=== PATIENT | male | born 1940 | race Caucasian/White ===

== ENCOUNTER 2024-03-26 08:36 | Outpatient (CLI) | payer MEDICARE, SELFPAY ==
--- NOTE | 2024-04-04 11:53 | WPDSLEEPSTUD ---
Sleep Study Date of Study: 03/26/24 Ordering Provider: Manny Dominguez, BOTTLE [employer] Interpreting Physician: Areli Edmonds MD Sleep Study Type: CPAP Titration Height: 1.83 m Weight: 90.718 kg Body Mass Index: 27.1 Neck Circumference (inches): 17 [place]: 7 Reason for Sleep Study Obstructive sleep apnea; office note indicates he was diagnosed with sleep apnea, was using auto PAP 5-12 with 3 cm EPR; I reviewed his compliance from February 17 through March 18. He has used his auto PAP 80% the days greater than 4 hours. His average usage is 5 hours 33 minutes. He is on auto PAP 5 cm to 12 cm with 3 cm EPR. His AHI is 11.8; central AHI 7.0 and obstructive AHI 3.2. He has good compliance with high AHI mainly central events. He presents for a CPAP titration. Sleep History Eusebio Moses is an 83-year-old man with a diagnosis of obstructive sleep apnea, received a CPAP machine in January of 2024 with difficulty using his device. His office note shows that he is on APAP 5-12 cm water pressure with 3 cm EPR with an elevated AHI 12 with central AHI of 7. 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 He has had difficulty sleeping at night since he retired. 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 He occasionally wakes at night with heartburn, belching or coughing.??He occasionally snores, only rarely snores loudly enough that others complain. He rarely has trouble sleeping when he has a cold. He rarely wakes up gasping for breath during the night. He occasionally has breathing problems at night. He never sweats excessively at night. He never notices his heart pounding or beating irregularly during the night. He constantly falls asleep during the day. He constantly falls asleep involuntarily, never falls asleep while driving. He never experiences loss of muscle tone with strong emotion. He never has daytime difficulty at work due to excessive sleepiness. He never feels paralyzed on waking or falling asleep. He never experiences vivid dreams upon waking or falling asleep. He never feels afraid of going to sleep. He rarely has nightmares. He rarely recalls his dreams. He rarely has thoughts racing through his mind. He rarely feels sad or depressed. He rarely feels anxiety. He frequently notices parts of his body jerk. He frequently kicks during the night. He frequently feels crawling or aching feelings in his legs. He never feels leg pain at night. He never has morning jaw pain, never grinds his teeth at night. He never feels bothered by pain during the day, is never awakened by pain during the night. He rarely wakes up feeling stiff in the morning, and he rarely wakes feeling sore or achy. He never awakens with pain in his neck, spine, or joints. Normal bedtime is 10:30 p.m., falling asleep quickly, waking 2 times at night to go to the bathroom, is able to return to sleep quickly. He wakes at 9:00 a.m.. He estimates getting between 4 and 6 hours of sleep at night. He keeps the same schedule on weekends. He generally does not nap in the day however a short nap lasting 10-15 minutes might be refreshing. He is usually drowsy for an hour after waking. He has had no significant weight change in the last year. Habits:??Tobacco: Quit tobacco 30 years ago Caffeine: 12 oz per day Alcohol: 12 oz per week Recreational substances: none PMFSH Past Medical History Medical History (Updated 04/07/24 @ 12:02 by Areli Edmonds MD) Hypertension Obstructive sleep apnea Rhinitis Surgical History Surgical History (Updated 04/04/24 @ 13:34 by Areli Edmonds MD) Status post surgical removal of malignant neoplasm of skin Social History Social History (Updated 04/04/24 @ 13:32 by Areli Edmonds MD) Social History: Quit tobacco 30 years ago. 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 Smoking packs per day: 1 Smoking cigarettes per day: 20.0 Smoking status: Former
[2024-04-07 12:41] VITALS: BMI 27.1
== END 2024-03-27 06:55 | disposition home or self-care (01) ==
LOC: ANHCSM 08:37
PROVIDERS: Visit Provider Nurse Practitioner Family
DX: G47.33 Obstructive sleep apnea (adult) (pediatric) (principal); G47.31 Primary central sleep apnea
CPT/HCPCS: 95811

== ENCOUNTER 2024-05-05 08:48 | Outpatient (CLI) | payer MEDICARE, SELFPAY ==
[2024-05-27 16:05] VITALS: BMI 27.1
--- NOTE | 2024-05-27 16:05 | WPDSLEEPSTUD ---
Sleep Study Date of Study: 05/05/24 Ordering Provider: Manny Dominguez, [employer] Interpreting Physician: Jaja Mabry, DO Sleep Study Type: CPAP Titration Height: 1.83 m Weight: 90.718 kg Body Mass Index: 27.1 Neck Circumference (inches): 17 [place]: 7 Reason for Sleep Study The patient had a CPAP Titration on 03/26/2024 which was unsuccessful due to extremely fragmented sleep and low sleep efficiency. No optimal pressure was found. Sleep History Eusebio Moses is an 83-year-old man with a diagnosis of obstructive sleep apnea, received a CPAP machine in January of 2024 with difficulty using his device. His office note shows that he is on APAP 5-12 cm water pressure with 3 cm EPR with an elevated AHI 12 with central AHI of 7. 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 He has had difficulty sleeping at night since he retired. 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 He occasionally wakes at night with heartburn, belching or coughing.??He occasionally snores, only rarely snores loudly enough that others complain. He rarely has trouble sleeping when he has a cold. He rarely wakes up gasping for breath during the night. He occasionally has breathing problems at night. He never sweats excessively at night. He never notices his heart pounding or beating irregularly during the night. He constantly falls asleep during the day. He constantly falls asleep involuntarily, never falls asleep while driving. He never experiences loss of muscle tone with strong emotion. He never has daytime difficulty at work due to excessive sleepiness. He never feels paralyzed on waking or falling asleep. He never experiences vivid dreams upon waking or falling asleep. He never feels afraid of going to sleep. He rarely has nightmares. He rarely recalls his dreams. He rarely has thoughts racing through his mind. He rarely feels sad or depressed. He rarely feels anxiety. He frequently notices parts of his body jerk. He frequently kicks during the night. He frequently feels crawling or aching feelings in his legs. He never feels leg pain at night. He never has morning jaw pain, never grinds his teeth at night. He never feels bothered by pain during the day, is never awakened by pain during the night. He rarely wakes up feeling stiff in the morning, and he rarely wakes feeling sore or achy. He never awakens with pain in his neck, spine, or joints. Normal bedtime is 10:30 p.m., falling asleep quickly, waking 2 times at night to go to the bathroom, is able to return to sleep quickly. He wakes at 9:00 a.m.. He estimates getting between 4 and 6 hours of sleep at night. He keeps the same schedule on weekends. He generally does not nap in the day however a short nap lasting 10-15 minutes might be refreshing. He is usually drowsy for an hour after waking. He has had no significant weight change in the last year. Habits:??Tobacco: Quit tobacco 30 years ago Caffeine: 12 oz per day Alcohol: 12 oz per week Recreational substances: none PMFSH Past Medical History Medical History Hypertension Obstructive sleep apnea Rhinitis Surgical History Surgical History Status post surgical removal of malignant neoplasm of skin Social History Social History Social History: Quit tobacco 30 years ago. 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 Smoking packs per day: 1 Smoking cigarettes per day: 20.0 Smoking status: Former smoker Alcohol intake: current Substance use: never Sleep Procedure A full night polysomnogram using the [employer] multi-channel system recorded the standard physiologic parameters including EEG, EOG, submentalis EMG, anterior tibialis EMG, EKG, body position, nasal and oral airflow using PAP [email or web address]
== END 2024-05-06 05:16 | disposition home or self-care (01) ==
LOC: ANHCSM 08:51
PROVIDERS: Visit Provider Nurse Practitioner Family
DX: G47.33 Obstructive sleep apnea (adult) (pediatric) (principal); I10 Essential (primary) hypertension; Z87.891 Personal history of nicotine dependence
CPT/HCPCS: 95811; J2704